=== PATIENT | female | born 1950 | race Caucasian/White ===

== ENCOUNTER 2024-09-12 12:40 | Emergency (ER) | payer MEDICARE ==
[~2024-09-12] VITALS: Ht 170.1 cm; Wt 69.4 kg
[2024-09-12] MEDS ORDERED: CEPHALEXIN500 M1 PO (14:08)
== END 2024-09-12 14:19 | disposition home or self-care (01) ==
LOC: ED 12:40
DX: L03.115 Cellulitis of right lower limb (principal); Z88.0 Allergy status to penicillin; W22.8XXA Striking against or struck by other objects, initial encounter; Y93.89 Activity, other specified; Y92.89 Other specified places as the place of occurrence of the external cause; Y99.8 Other external cause status